=== PATIENT | female | born 1995 | race Two or more races ===

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

== ENCOUNTER 2017-02-09 11:27 | Emergency (ER) | payer OTHER ==
[~2017-02-09] VITALS: Ht 162.6 cm; Wt 70.0 kg
[~2017-02-09 11:27] MED LIST: PRENANTAL
[2017-02-09 11:30] VITALS: BP 112/70
[2017-02-09] MEDS ORDERED: PREN1TAB60 PO (12:43)
== END 2017-02-09 11:56 ==
LOC: ED 11:50
DX: Z53.21 Procedure and treatment not carried out due to patient leaving prior to being seen by health care provider (principal)

== ENCOUNTER 2017-02-09 11:51 | Outpatient (CLI) | payer OTHER ==
[2017-02-09 12:30] VITALS: BP 125/70
[2017-02-09] MEDS ORDERED: PREN1TAB60 PO (12:43)
== END 2017-02-09 12:55 | disposition home or self-care (01) ==
LOC: LDOP 11:51
PROVIDERS: ATTEND Obstetrics & Gynecology
DX: O26.893 Other specified pregnancy related conditions, third trimester (principal); O99.513 Diseases of the respiratory system complicating pregnancy, third trimester; R42 Dizziness and giddiness; R10.9 Unspecified abdominal pain; J45.909 Unspecified asthma, uncomplicated; Z3A.38 38 weeks gestation of pregnancy
CPT/HCPCS: 59025; 99211; G0463

== ENCOUNTER 2017-02-12 15:34 | Emergency (ER) | payer OTHER ==
[~2017-02-12] VITALS: Ht 162.6 cm; Wt 68.8 kg
[~2017-02-12 15:34] MED LIST changes: +PREN1TAB60 PO
[2017-02-12] MEDS ORDERED: ACETAMINOPHEN 325 MG TABLET PO ONE (16:30)
[2017-02-12] MEDS ORDERED: ACETAMINOPHEN 325 MG TABLET ONE (16:30)
[2017-02-12] MEDS ORDERED: SODIUM CHLORIDE 0.9% 1,000ML IVBOLUS ONE (16:30)
[2017-02-12] MEDS ORDERED: SODIUM CHLORIDE FLUSH 10ML SYR IVF ONE (16:30)
[2017-02-12 16:37] LABS: BLOOD UREA NITROGEN 4 mg/dL (7-18)
[2017-02-12 16:50] LABS: HEMATOCRIT 34.4 % (34.6-47.8); HEMOGLOBIN 11.6 g/dL (11.7-16.4); WHITE BLOOD COUNT 11.9 x10^3/uL (4.5-13.2)
[2017-02-12 16:51] LABS: GIANT PLATELETS 1+
[2017-02-12] MEDS ORDERED: OSELTAMIVIR 75 MG CAPSULE PO ONE (18:00)
[2017-02-12 19:08] VITALS: BP 116/56
== END 2017-02-12 19:12 | disposition home or self-care (01) ==
LOC: ED 16:15
DX: Z3A.00 Weeks of gestation of pregnancy not specified (principal); J11.1 Influenza due to unidentified influenza virus with other respiratory manifestations; O26.893 Other specified pregnancy related conditions, third trimester
CPT/HCPCS: 36415; 71020; 80048; 82040; 85025; 96360; 99285; J7030

== ENCOUNTER 2017-03-14 23:40 | Outpatient (CLI) | payer OTHER | END 2017-03-15 02:20 | disposition home or self-care (01) | LOC: LDOP 23:40 | PROVIDERS: ATTEND Obstetrics & Gynecology | DX: O26.893 Other specified pregnancy related conditions, third trimester (principal); O62.9 Abnormality of forces of labor, unspecified; R10.9 Unspecified abdominal pain; Z3A.36 36 weeks gestation of pregnancy | CPT/HCPCS: 59025; 99211; G0463 ==

== ENCOUNTER 2017-03-31 11:03 | Outpatient (CLI) | payer OTHER ==
[~2017-03-31] VITALS: Ht 162.6 cm; Wt 74.5 kg
[2017-03-31 11:37] VITALS: BP 127/71
[2017-03-31] MEDS ORDERED: ALBU0.63 NEB (12:04)
== END 2017-03-31 12:50 | disposition home or self-care (01) ==
LOC: LDOP 11:03
PROVIDERS: ATTEND Obstetrics & Gynecology
DX: O26.893 Other specified pregnancy related conditions, third trimester (principal); O62.9 Abnormality of forces of labor, unspecified; R10.9 Unspecified abdominal pain; Z3A.38 38 weeks gestation of pregnancy
CPT/HCPCS: 59025; 99211; G0463

== ENCOUNTER 2017-07-01 16:02 | Emergency (ER) | payer OTHER ==
[~2017-07-01] VITALS: Ht 162.6 cm; Wt 57.5 kg
[~2017-07-01 16:02] MED LIST changes: +ALBU0.63 NEB; +CLIN150C14 PO; +DOCU-131 PO; +IBUP-1222 PO; +OXYC-302 PO
[2017-07-01 17:11] LABS: BASOPHILS # (AUTO) 0.03 x10^3/uL (0-0.3); BASOPHILS % (AUTO) 1 % (0-1); EOSINOPHILS # (AUTO) 0.23 x10^3/uL (0-0.8); EOSINOPHILS % (AUTO) 4 % (1-7); LYMPHOCYTES # (AUTO) 1.89 x10^3/uL (1-6.1); LYMPHOCYTES % (AUTO) 33 % (22-44); MD NO; MEAN CORPUSCULAR HEMOGLOBIN 28.6 pg (27.0-34.8); MEAN CORPUSCULAR HGB CONC 33.5 g/dL (32.4-35.8); MEAN CORPUSCULAR VOLUME 85.4 fL (80-100); MEAN PLATELET VOLUME 8.5 fL (7.4-10.4); MONOCYTES # (AUTO) 0.35 x10^3/uL (0-1.4); MONOCYTES % (AUTO) 6 % (2-9); NEUTROPHILS # (AUTO) 3.29 x10^3/uL (1.8-8.0); NEUTROPHILS % (AUTO) 57 % (42-75); PLATELET COUNT 250 x10^3/uL (130-400); RED BLOOD COUNT 4.21 x10^6/uL (3.82-5.3); RED CELL DISTRIBUTION WIDTH 16.5 % (9.6-15.2)
[2017-07-01 17:22] LABS: ALBUMIN 3.7 g/dL (3.4-5.0); ANION GAP 6 mmol/L (5-15); CALCIUM 8.2 mg/dL (8.5-10.1); CHLORIDE 111 mmol/L (98-107); CREATININE 0.71 mg/dL (0.55-1.02)
[2017-07-01 17:41] LABS: CULTURE INDICATED? YES; MICROSCOPIC INDICATED
[2017-07-01 17:45] VITALS: BP 112/60
[2017-07-01] MEDS ORDERED: PHENAZOPYRIDINE 200 MG TABLET PO ONE (18:30)
== END 2017-07-01 18:58 | disposition home or self-care (01) ==
LOC: ED 17:09
DX: N30.90 Cystitis, unspecified without hematuria (principal); F32.9 Major depressive disorder, single episode, unspecified; F17.210 Nicotine dependence, cigarettes, uncomplicated
CPT/HCPCS: 36415; 80048; 81001; 82040; 84703; 85025; 87077; 87086; 87186; 99284

== ENCOUNTER 2017-09-16 11:51 | Emergency (ER) | payer OTHER ==
[~2017-09-16] VITALS: Ht 162.6 cm; Wt 65.9 kg
[2017-09-16] MEDS ORDERED: SODIUM CHLORIDE FLUSH 10ML SYR IVF ONE (12:30)
[2017-09-16 12:54] LABS: BASOPHILS # (AUTO) 0.02 x10^3/uL (0-0.3); BASOPHILS % (AUTO) 0 % (0-1); EOSINOPHILS # (AUTO) 0.09 x10^3/uL (0-0.8); EOSINOPHILS % (AUTO) 2 % (1-7); LYMPHOCYTES # (AUTO) 1.95 x10^3/uL (1-6.1); LYMPHOCYTES % (AUTO) 34 % (22-44); MD NO; MEAN CORPUSCULAR HEMOGLOBIN 29.8 pg (27.0-34.8); MEAN CORPUSCULAR HGB CONC 34.2 g/dL (32.4-35.8); MEAN CORPUSCULAR VOLUME 87.2 fL (80-100); MEAN PLATELET VOLUME 9.5 fL (7.4-10.4); MONOCYTES # (AUTO) 0.37 x10^3/uL (0-1.4); MONOCYTES % (AUTO) 7 % (2-9); NEUTROPHILS # (AUTO) 3.26 x10^3/uL (1.8-8.0); NEUTROPHILS % (AUTO) 57 % (42-75); PLATELET COUNT 218 x10^3/uL (130-400); RED BLOOD COUNT 3.91 x10^6/uL (3.82-5.3); RED CELL DISTRIBUTION WIDTH 15.9 % (9.6-15.2)
[2017-09-16 12:56] LABS: ALBUMIN 3.7 g/dL (3.4-5.0); ANION GAP 7 mmol/L (5-15); CHLORIDE 109 mmol/L (98-107)
[2017-09-16 13:14] LABS: CREATININE 0.71 mg/dL (0.55-1.02)
[2017-09-16 13:56] VITALS: BP 109/38
[2017-09-16 13:56] LABS: MICROSCOPIC NOT IND
[2017-09-16 13:57] LABS: CULTURE INDICATED? NO
== END 2017-09-16 14:43 | disposition home or self-care (01) ==
LOC: ED 12:55
DX: O26.891 Other specified pregnancy related conditions, first trimester (principal); Z3A.01 Less than 8 weeks gestation of pregnancy; R10.30 Lower abdominal pain, unspecified; Z87.891 Personal history of nicotine dependence
CPT/HCPCS: 36415; 76830; 80048; 81003; 82040; 84702; 85025; 86901; 99285

== ENCOUNTER 2017-11-09 18:49 | Emergency (ER) | payer OTHER ==
[~2017-11-09] VITALS: Ht 162.6 cm; Wt 62.6 kg
[2017-11-09 19:40] LABS: BASOPHILS # (AUTO) 0.01 x10^3/uL (0-0.3); BASOPHILS % (AUTO) 0 % (0-1); EOSINOPHILS # (AUTO) 0.04 x10^3/uL (0-0.8); EOSINOPHILS % (AUTO) 0 % (1-7); LYMPHOCYTES # (AUTO) 0.86 x10^3/uL (1-6.1); LYMPHOCYTES % (AUTO) 10 % (22-44); MD NO; MEAN CORPUSCULAR HEMOGLOBIN 30.2 pg (27.0-34.8); MEAN CORPUSCULAR HGB CONC 34.1 g/dL (32.4-35.8); MEAN CORPUSCULAR VOLUME 88.5 fL (80-100); MEAN PLATELET VOLUME 9.6 fL (7.4-10.4); MONOCYTES # (AUTO) 0.29 x10^3/uL (0-1.4); MONOCYTES % (AUTO) 3 % (2-9); NEUTROPHILS # (AUTO) 7.24 x10^3/uL (1.8-8.0); NEUTROPHILS % (AUTO) 86 % (42-75); PLATELET COUNT 190 x10^3/uL (130-400); RED BLOOD COUNT 4.38 x10^6/uL (3.82-5.3)
[2017-11-09 19:50] LABS: ALBUMIN 3.6 g/dL (3.4-5.0); ANION GAP 7 mmol/L (5-15); CALCIUM 8.9 mg/dL (8.5-10.1); CHLORIDE 106 mmol/L (98-107)
[2017-11-09 20:08] LABS: ALANINE AMINOTRANSFERASE 12 U/L (12-78); ALKALINE PHOSPHATASE 61 U/L (45-117); BILIRUBIN,TOTAL 1.1 mg/dL (0.2-1.0); CREATININE 0.79 mg/dL (0.55-1.02); TOTAL PROTEIN 7.1 g/dL (6.4-8.2)
[2017-11-09 20:10] LABS: CULTURE INDICATED? YES; MICROSCOPIC INDICATED
[2017-11-09] MEDS ORDERED: ACETAMINOPHEN 325 MG TABLET PO ONE (20:30)
[2017-11-09] MEDS ORDERED: ACETAMINOPHEN 325 MG TABLET ONE (20:37)
[2017-11-09 21:53] VITALS: BP 96/58
== END 2017-11-09 21:56 | disposition home or self-care (01) ==
LOC: ED 20:44
DX: O21.9 Vomiting of pregnancy, unspecified (principal); R10.30 Lower abdominal pain, unspecified; Z3A.15 15 weeks gestation of pregnancy
CPT/HCPCS: 36415; 76815; 80053; 81001; 84702; 85025; 87086; 99285

== ENCOUNTER 2018-02-10 19:32 | Outpatient (CLI) | payer MEDICAID, OTHER ==
[~2018-02-10] VITALS: Ht 162.6 cm; Wt 71.4 kg
[2018-02-10 20:06] LABS: MICROSCOPIC AUTO
[2018-02-10 20:21] LABS: AMPHETAMINE SCREEN, URINE Negative (Negative); BARBITURATE SCREEN, URINE Negative (Negative); BENZODIAZEPINE SCREEN, URINE Negative (Negative); CANNABINOID SCREEN, URINE Negative (Negative); COCAINE SCREEN, URINE Negative (Negative); METHADONE SCREEN, URINE Negative (Negative); OPIATE SCREEN, URINE Negative (Negative)
[2018-02-10] MEDS ORDERED: TERBUTALINE 1 MG/ML, 1ML SQ ONE (20:30)
[2018-02-10] MEDS ORDERED: TERBUTALINE 1 MG/ML, 1ML ONE (20:32)
== END 2018-02-11 00:41 | disposition home or self-care (01) ==
LOC: LDOP 19:32
PROVIDERS: ATTEND Obstetrics & Gynecology
DX: O26.892 Other specified pregnancy related conditions, second trimester (principal); Z3A.27 27 weeks gestation of pregnancy
CPT/HCPCS: 59025; 76815; 80307; 81001; 87086; 96372; 99211; J3105; G0463

== ENCOUNTER 2018-02-12 22:22 | Outpatient (CLI) | payer MEDICAID | END 2018-02-13 01:05 | disposition home or self-care (01) | LOC: LDOP 22:22 | PROVIDERS: ATTEND Obstetrics & Gynecology Gynecology | DX: O26.892 Other specified pregnancy related conditions, second trimester (principal); Z3A.26 26 weeks gestation of pregnancy | CPT/HCPCS: 59025; 82731; 99211; G0463 ==

== ENCOUNTER 2018-02-28 13:48 | Observation (INO) | payer MEDICAID ==
[~2018-02-28] VITALS: Ht 162.6 cm; Wt 69.5 kg
[2018-02-28 14:02] VITALS: BP 122/71
[2018-02-28 14:43] LABS: MICROSCOPIC NOT IND
[2018-02-28 14:56] LABS: AMPHETAMINE SCREEN, URINE Negative (Negative); BARBITURATE SCREEN, URINE Negative (Negative); BENZODIAZEPINE SCREEN, URINE Negative (Negative); CANNABINOID SCREEN, URINE Negative (Negative); COCAINE SCREEN, URINE Negative (Negative); METHADONE SCREEN, URINE Negative (Negative); OPIATE SCREEN, URINE Negative (Negative)
[2018-02-28] MEDS ORDERED: TERBUTALINE 1 MG/ML, 1ML ONE (15:01)
[2018-02-28] MEDS: LACTATED RINGERS 1,000 ML IV SCH (15:13)
[2018-02-28] MEDS ORDERED: TERBUTALINE 1 MG/ML, 1ML SQ ONE (15:30)
[2018-02-28] MEDS ORDERED: DIPHENHYDRAMINE 25 MG CAPSULE PO PRN (19:00)
[2018-02-28 19:51] LABS: CLUE CELLS NONE SEEN (NONE SEEN)
[2018-02-28 19:55] LABS: WET PREP WBCS FEW (FEW)
[2018-03-01] MEDS: LACTATED RINGERS 1,000 ML IV SCH (06:18)
[2018-03-01 07:42] VITALS: BP 132/62
[2018-03-01] MEDS ORDERED: PRENATAL VIT/IRON/FA 1 EACH TABLET ONE (08:44)
[2018-03-01] MEDS ORDERED: PRENATAL VIT/IRON/FA 1 EACH TABLET PO SCH (09:00)
== END 2018-03-01 14:00 | disposition home or self-care (01) ==
LOC: LDOP 13:48 → LDIP 19:09
PROVIDERS: ADMIT Obstetrics & Gynecology; ATTEND Obstetrics & Gynecology
DX: O60.03 Preterm labor without delivery, third trimester (principal); O99.513 Diseases of the respiratory system complicating pregnancy, third trimester; J45.909 Unspecified asthma, uncomplicated; Z3A.30 30 weeks gestation of pregnancy
CPT/HCPCS: 80307; 81003; 87081; 87086; 87210; 87491; 87591; 87808; 96372; G0378; J3105; J7120